=== PATIENT | male | born 1950 ===

== ENCOUNTER 2020-06-12 12:20 | Emergency (ER) | payer OTHER ==
[~2020-06-12] VITALS: Ht 175.3 cm; Wt 81.6 kg
[2020-06-12] MEDS ORDERED: ZESTRIL20 MG (12:28)
== END 2020-06-12 17:58 | disposition home or self-care (01) ==
LOC: ER 12:20
DX: K57.90 Diverticulosis of intestine, part unspecified, without perforation or abscess without bleeding (principal); K62.5 Hemorrhage of anus and rectum